=== PATIENT | female | born 1985 | race Caucasian/White ===

== ENCOUNTER → 2021-02-20 10:22 | Outpatient (CLI) | payer MEDICAID, SELFPAY ==
[2021-02-20 13:10] LABS: HCG,Quantitative 26503 mIU/ml (0-5.42)
== END ==
PROVIDERS: Visit Provider Obstetrics & Gynecology
DX: Z34.90 Encounter for supervision of normal pregnancy, unspecified, unspecified trimester (principal)
CPT/HCPCS: 36415; 84702

== ENCOUNTER → 2021-02-22 10:15 | Outpatient (CLI) | payer MEDICAID, SELFPAY ==
[2021-02-22 11:51] LABS: HCG,Quantitative 24086 mIU/ml (0-5.42)
== END ==
PROVIDERS: Visit Provider Obstetrics & Gynecology
DX: Z34.90 Encounter for supervision of normal pregnancy, unspecified, unspecified trimester (principal)
CPT/HCPCS: 36415; 84702

== ENCOUNTER → 2021-02-27 10:33 | Outpatient (CLI) | payer MEDICAID, SELFPAY ==
--- NOTE | 2021-02-27 10:33 | US_ITS ---
FINAL REPORT CLINICAL HISTORY: Dates-- anatomy scan FINDINGS: TRANSABDOMINAL ULTRASOUND, Single intrauterine is present. Cardiac activity is confirmed at 149 beats per minute. Appropriate amount of fluid is present. Placenta is anterior. Growth parameters are as follows: BPD: 4.2 cm consistent with 18 weeks 5 days. Head circumference: 14.9 cm consistent with 18 weeks 0 days. Abdominal circumference: 12.7 cm consistent with 18 weeks 3 days. Femur length: 2.8 cm consistent with 18 weeks 4 days. Estimated gestational age: 18 weeks 3 days. IMPRESSION: Single living IUP with estimated gestational age of 18 weeks 3 days. Reviewed, Interpreted and Dictated by Wesley Bueno III, MD Transcribed by Jermaine Cobb Authenticated by Wesley Bueno III, MD on 02/27/2021 01:24:15 PM [facility]
== END ==
PROVIDERS: PCP Obstetrics & Gynecology; Visit Provider Obstetrics & Gynecology
DX: Z34.90 Encounter for supervision of normal pregnancy, unspecified, unspecified trimester (principal)
CPT/HCPCS: 76805

== ENCOUNTER → 2021-03-07 09:00 | Outpatient (CLI) | payer MEDICAID, SELFPAY ==
[2021-03-07 09:48] LABS: Barbiturates Screen,Urine Negative ng/ml (<200)
[2021-03-07 09:49] LABS: Amphetamine/Metha Screen,Urine Negative ng/ml (<1000); Benzodiazepines Screen,Urine Negative ng/ml (<200)
[2021-03-07 09:50] LABS: Basophils # 0.1 K/mm3 (0-0.2); Basophils % 0.6 % (0.1-2.0); Eosinophils # 0.2 K/mm3 (0.0-0.4); Eosinophils % 1.5 % (0.1-12.0); Hematocrit 40.7 % (37.0-47.0); Hemoglobin 12.8 g/dL (12.2-16.2); Lymphocytes # 2.7 K/mm3 (0.7-4.5); Lymphocytes % 16.8 % (10-50); Mean Corpuscular HGB Conc 31.3 g/dL (31.8-35.4); Mean Corpuscular Hemoglobin 28.5 pg (27.0-31.2); Mean Corpuscular Volume 90.8 fl (81-99); Mean Platelet Volume 10.2 fl (7.4-10.4); Methadone Screen,Urine Negative ng/ml (<300); Monocytes # 0.5 K/mm3 (0.1-1.0); Monocytes % 3.1 % (1.7-9.3); Neutrophils # 12.4 K/mm3 (1.8-7.8); Neutrophils % 77.9 % (37.0-80.0); Platelet Count 335 K/mm3 (142-424); Red Blood Count 4.49 M/mm3 (4.20-5.40); Red Cell Distribution Width 14.2 % (11.5-17.5); White Blood Count 15.9 K/mm3 (4.8-10.8)
[2021-03-07 09:51] LABS: Cannabinoid Screen,Urine Negative ng/ml (<50); Cocaine Screen,Urine Negative ng/ml (<300)
[2021-03-07 09:52] LABS: Opiate Screen,Urine Negative ng/ml (<300)
[2021-03-07 09:53] LABS: Phencyclidine Screen,Urine Negative ng/ml (<25)
[2021-03-07 10:00] LABS: MANUAL DIFFERENTIAL MANUAL DIFFERENTIAL (MANUAL DIFF)
[2021-03-07 13:21] LABS: Eosinophils % 3 % (0-3); Lymphocytes % 16 % (10-50); Monocytes % 5 % (2-9); Neutrophils % 76 % (42-76); Platelet Estimate Normal; RBC Morphology Normal; Total Cells Counted 100
[2021-03-08 08:14] LABS: HIV Screen 4th Generation wRfx Non Reactive (Non Reactive)
[2021-03-08 09:13] LABS: Hepatitis B Surface Antigen Negative (Negative); Hepatitis C Antibody <0.1 s/co ratio (0.0-0.9)
[2021-03-08 11:38] LABS: Rapid Plasma Reagin Ab Titer Non Reactive (NonRea<1:1)
[2021-03-09 06:56] LABS: Rubella Antibodies, IgG 1.29 index (Immune >0.99)
== END ==
PROVIDERS: Visit Provider Obstetrics & Gynecology
DX: Z34.90 Encounter for supervision of normal pregnancy, unspecified, unspecified trimester (principal)
CPT/HCPCS: 36415; 80305; 85007; 85025; 86592; 86703; 86762; 86850; 87340; 87380; G0432

== ENCOUNTER → 2021-03-13 10:23 | Outpatient (CLI) | payer MEDICAID, SELFPAY ==
--- NOTE | 2021-03-13 10:23 | US_ITS ---
FINAL REPORT CLINICAL HISTORY: anatomy FINDINGS: There is a single live intrauterine gestation. Presentation is cephalic. Placenta is anterior. Cardiac activity is confirmed at 140 bpm. Three-vessel cord with satisfactory umbilical cord insertion. Four-chamber heart is noted. brain and ventricles are unremarkable. Chest and diaphragm are unremarkable. ABDOMEN: Both kidneys are unremarkable. Stomach is unremarkable. SPINE: No anomalies identified. Both arms and legs noted. AMNIOTIC FLUID: Appropriate amount. MEASUREMENTS: ULTRASOUND AGE: 20 weeks 1 days. GESTATION AGE: 20 weeks 3 days. ESTIMATED WEIGHT: 334 g GROWTH PERCENTILE: 30% BPD: 4.8 cm consistent with 20 weeks 3 days. OFD: 6.0 cm consistent with 20 weeks 3 days. HC: 16.9 cm consistent with 19 weeks 4 days. AC: 14.8 cm consistent with 20 weeks 1 days. FL: 3.3 cm consistent with 20 weeks 3 days. CEREBELLUM: 2 cm consistent with 20 weeks 2 days. Nuchal fold: 2.3 mm HC/AC: 1.15 CI: 80% FL/BPD: 70% FL/AC: 22% IMPRESSION: Single living IUP with an ultrasound age of 20 weeks 1 days. Reviewed, Interpreted and Dictated by Ollie Peñaloza MD Transcribed by Jermaine Cobb Authenticated by Ollie Peñaloza MD on 03/13/2021 03:38:49 PM [facility]
== END ==
PROVIDERS: Visit Provider Obstetrics & Gynecology
DX: Z34.90 Encounter for supervision of normal pregnancy, unspecified, unspecified trimester (principal)
CPT/HCPCS: 76805

== ENCOUNTER → 2021-03-21 14:23 | Outpatient (CLI) | payer MEDICAID, SELFPAY ==
[2021-03-21 16:29] LABS: Basophils # 0.1 K/mm3 (0-0.2); Basophils % 0.5 % (0.1-2.0); Eosinophils # 0.4 K/mm3 (0.0-0.4); Eosinophils % 4.1 % (0.1-12.0); Hematocrit 34.5 % (37.0-47.0); Hemoglobin 11.3 g/dL (12.2-16.2); Lymphocytes # 1.6 K/mm3 (0.7-4.5); Lymphocytes % 16.9 % (10-50); Mean Corpuscular HGB Conc 32.6 g/dL (31.8-35.4); Mean Corpuscular Hemoglobin 28.6 pg (27.0-31.2); Mean Corpuscular Volume 87.7 fl (81-99); Mean Platelet Volume 12.6 fl (7.4-10.4); Monocytes # 0.4 K/mm3 (0.1-1.0); Monocytes % 3.7 % (1.7-9.3); Neutrophils % 74.8 % (37.0-80.0); Platelet Count 238 K/mm3 (142-424); Red Blood Count 3.94 M/mm3 (4.20-5.40); Red Cell Distribution Width 13.9 % (11.5-17.5); White Blood Count 9.3 K/mm3 (4.8-10.8)
== END ==
PROVIDERS: Visit Provider Obstetrics & Gynecology
DX: Z34.90 Encounter for supervision of normal pregnancy, unspecified, unspecified trimester (principal)
CPT/HCPCS: 36415; 85025

== ENCOUNTER → 2021-04-26 13:21 | Outpatient (CLI) | payer MEDICAID, SELFPAY ==
[2021-04-26 13:58] LABS: Basophils # 0.1 K/mm3 (0-0.2); Basophils % 0.6 % (0.1-2.0); Eosinophils # 0.2 K/mm3 (0.0-0.4); Eosinophils % 1.3 % (0.1-12.0); Hematocrit 32.5 % (37.0-47.0); Hemoglobin 10.6 g/dL (12.2-16.2); Lymphocytes # 2.1 K/mm3 (0.7-4.5); Lymphocytes % 16.6 % (10-50); Mean Corpuscular HGB Conc 32.7 g/dL (31.8-35.4); Mean Corpuscular Hemoglobin 27.8 pg (27.0-31.2); Mean Corpuscular Volume 84.9 fl (81-99); Mean Platelet Volume 11.1 fl (7.4-10.4); Monocytes # 0.3 K/mm3 (0.1-1.0); Monocytes % 2.7 % (1.7-9.3); Neutrophils % 78.9 % (37.0-80.0); Platelet Count 221 K/mm3 (142-424); Red Blood Count 3.83 M/mm3 (4.20-5.40); Red Cell Distribution Width 13.7 % (11.5-17.5); White Blood Count 12.7 K/mm3 (4.8-10.8)
[2021-04-26 14:32] LABS: Glucose,Fasting 83 mg/dl (74-100)
[2021-04-26 16:23] LABS: Glucose 1 Hour 100 mg/dL (74-100)
== END ==
PROVIDERS: Visit Provider Obstetrics & Gynecology
DX: Z34.90 Encounter for supervision of normal pregnancy, unspecified, unspecified trimester (principal)
CPT/HCPCS: 36415; 82951; 85025

== ENCOUNTER 2021-04-28 15:40 | Emergency (ER) | payer MEDICAID, SELFPAY ==
[2021-04-28 15:40] VITALS: BP 128/74; PULSE 95; RESP 16; TEMP 37.1; O2SAT 99; BMI 25.4
[2021-04-28 16:10] VITALS: BP 128/74; PULSE 95; RESP 16; TEMP 37.1; O2SAT 99; BMI 25.5
--- NOTE | 2021-04-28 16:34 | HMH.EDUTC ---
[facility] [place] Disposition Clinical Impression: Fatigue Qualifiers: Fatigue type: unspecified Qualified Code(s): R53.83 - Other fatigue Disposition: Home, Self-Care Condition on Discharge: Good Instructions: DI for Fatigue, DI for Viral Syndrome Additional Instructions: Follow up immediately if any worsening of symptoms Return if needed Straight to ER if any life threatening symptoms Follow up with OB if any related issues make sure that you are drinking plenty of fluids to keep yourself hydrated Referrals: Provider,Filipe, [Referring] - As needed Diamante Álvarez MD [Primary Care Provider] - Time of Disposition: 17:16 Medical Decision Making - Edwar Inquiry Pt receiving controlled substance: No Edwar was queried for this patient: No Vital Signs: 04/28/21 15:40 04/28/21 16:10 04/28/21 17:06 Temperature 98.7 F 98.7 F 98.7 F Temperature Source Oral Oral Pulse Rate 95 H Pulse Rate [Right Radial] 95 H 95 H Respiratory Rate 16 16 16 Blood Pressure 128/74 Blood Pressure [Right Arm] 128/74 128/74 Blood Pressure Mean [Right Arm] 92 92 Blood Pressure Source [Right Arm] Automatic Cuff Automatic Cuff Blood Pressure Position [Right Arm] Sitting Sitting 02 Sat by Pulse Oximetry 99 99 Oxygen Delivery Method Room Air Room Air - Lab Data Lab results reviewed: Yes: I reviewed the patient's lab results. Lab Results 04/28/21 16:35: Influenza Type A Ag Negative, Influenza Type B Ag Negative 04/28/21 16:48: Chlamy pneumoniae PCR Not detected, Adenovirus (PCR) Not detected, B. pertussis DNA (PCR) Not detected, Coronavirus OC43 (PCR) Not detected, Coronavirus HKU1 (PCR) Not detected, Coronavirus 229E (PCR) Not detected, SARS-CoV-2 (PCR) Not detected, Coronavirus NL63 (PCR) Not detected, Human Metapneumovir PCR Not detected, Influenza A (H1) PCR Not detected, Influ A (H1N1/09) PCR Not detected, Influenza A (H3) PCR Not detected, Influenza Type A (PCR) Not detected, Influenza Type B (PCR) Not detected, M. pneumoniae (PCR) Not detected, Parainfluenza 1 (PCR) Not detected, Parainfluenza 2 (PCR) Not detected, Parainfluenza 3 (PCR) Not detected, Parainfluenza 4 (PCR) Not detected, RSV (PCR) Not detected, Entero/Rhino (PCR) Detected A 04/28/21 17:02: Urine Color Yellow, Urine Appearance Clear, Urine pH 7.0, Ur Specific [place] 1.020, Urine Protein Negative, Urine Glucose (UA) Negative, Urine Ketones Negative, Urine Blood Negative, Urine Nitrate Negative, Urine Bilirubin Negative, Urine Urobilinogen 0.2, Ur Leukocyte Esterase Negative [facility] [place] HPI - General Stated complaint: dizzyness Time Seen by Provider: 04/28/21 16:34 Mode of Arrival: Ambulatory Source of Information: Patient Limitations: No Limitations Description of Symptoms (Recalled from Triage Doc. by RN): C/O flu-like symptoms, fatigue, chill, dizziness - History of Present Illness Provider Complaint: Patient states that she has been having body aches, chills, and flu like symptoms States that this morning she felt a little light headed when she was folding socks but did not have syncope and felt better after she sit there for a little bit States that son is sick too and she was worried they may have the flu as it is going around at his daycare States that she is 30wks OB but denies cramping or abdominal pain - Related Data Previous Rx's Medication Instructions Recorded prenat.vits,tran,bmp-[id number] 1 tab PO DAILY #30 tab 03/07/21 Allergies Allergy/AdvReac Type Severity Reaction Status Date / Time No Known Allergies Allergy Verified 04/20/21 09:30 [facility] History - Hepatitis A Screen Attestation statement:: This patient has been screened for Hepatitis A risk factors. I have reviewed the patient's past medical history: Yes Other Surgeries: Yes: Amputation: No Fractures: No - Social History Smoking Status: Current every day smoker Alcohol Intake: never Substance Use Type: denies use Occupational Status: unemployed Family Hx
[2021-04-28 16:37] LABS: UTC Influenza A Antigen Negative (Negative); UTC Influenza B Antigen Negative (Negative)
[2021-04-28 16:59] LABS: Adenovirus,PCR Not Detected (NotDetected); Bordetella Pertussis Not Detected (NotDetected); Chlamydophila Pneumoniae, PCR Not Detected (NotDetected); Coronavirus 19, PCR Not Detected (NotDetected); Coronavirus 229E Not Detected (NotDetected); Coronavirus NL63 Not Detected (NotDetected); Coronavirus OC43 Not Detected (NotDetected); Coronovirus HKU1,PCR Not Detected (NotDetected); Human Metapneumovirus Not Detected (NotDetected); Influenza A, PCR Not Detected (NotDetected); Influenza AH1, 2009 Not Detected (NotDetected); Influenza AH1, PCR Not Detected (NotDetected); Influenza AH3,PCR Not Detected (NotDetected); Influenza B, PCR Not Detected (NotDetected); Mycoplasma Pneumoniae, PCR Not Detected (NotDetected); Parainfluenza 1, PCR Not Detected (NotDetected); Parainfluenza 2, PCR Not Detected (NotDetected); Parainfluenza 3, PCR Not Detected (NotDetected); Parainfluenza 4, PCR Not Detected (NotDetected); Respiratory Syncytial Virus Not Detected (NotDetected)
[2021-04-28 17:03] LABS: Apearance,Urine Clear (Clear); Bilirubin,Urine Negative (Negative); Blood, Urine Negative (Negative); Color,Urine Yellow (Yellow); Glucose,Urine (UA) Negative (Negative); Ketones,Urine Negative (Negative); Protein,Urine Negative (Negative); UTC Leukocyte Esterase,Urine Negative (Negative); UTC Nitrate,Urine Negative (Negative); Urobilinogen,Urine 0.2 EU/dl (0.2)
[2021-04-28 17:06] VITALS: BP 128/74; PULSE 95; RESP 16; TEMP 37.1; O2SAT 99
[2021-04-28 19:15] LABS: Rhinovirus/Enterovirus Detected (NotDetected)
== END 2021-04-28 17:26 | disposition home or self-care (01) ==
PROVIDERS: Emergency Provider Nurse Practitioner; PCP Obstetrics & Gynecology
DX: R42 Dizziness and giddiness (principal); Z3A.30 30 weeks gestation of pregnancy
CPT/HCPCS: 81003; 87581; 87632; 87798; 87804; 99212; C9803; G0463; U0003; U0005